=== PATIENT | male | born 1970 | race Hispanic/Latino ===

== ENCOUNTER 2020-11-17 12:59 | Emergency (ER) | payer BC ==
[~2020-11-17] VITALS: Ht 177.8 cm; Wt 95.3 kg
[2020-11-17 13:16] VITALS: BP 151/78
[2020-11-17 13:22] VITALS: BP 151/78
[2020-11-17 13:55] LABS: BILIRUBIN,URINE NEGATIVE (NEGATIVE); UA COLOR YELLOW; UROBILINOGEN,URINE 0.2 E.U./dL (0.2)
--- NOTE | 2020-11-17 13:55 | ER.PDOC ---
General Chief Complaint: Lower Back Pain or Injury Stated Complaint: HIP/BACK PAIN Time seen by MD: 13:52 Source: patient Exam Limitations: no limitations History of Present Illness Initial Comments Patient with initial back pain 3 weeks ago which improved spontaneously. Has returned 2 days ago, and getting worse. Severity/Quality: moderate, sharpness Radiation: other (No radiation) Method of Injury: unknown Modifying Factors: improves with movement, improves with rest Associated Symptoms: lower back pain Prior symptoms/Treatment: Similar symptoms previous (No prior diagnosis) Past Medical History Medical History: no pertinent history Surgical History: no surgical history Social History Alcohol Use: occassionally Drug Use: none Reviewed Nursing Reviewed: Vital Signs, Abn. Noted Review of Systems Constitutional: no symptoms reported EENTM: no symptoms reported Respiratory: no symptoms reported Cardiovascular: no symptoms reported Gastrointestinal: no symptoms reported Genitourinary: denies discharge, denies dysuria, denies frequency, denies hematuria, denies pain; other (hesitancy, and incomplete emptying.) Musculoskeletal: see HPI, back pain Skin: no symptoms reported Psychiatric/Neurological: no symptoms reported All Other Systems: Reviewed and Negative Physical Exam General Appearance: No Apparent Distress, WD/WN HEENT: PERRL/EOMI, Normal ENT Inspection, TMs Normal, Pharynx Normal Neck: Non-Tender, Normal Alignment Cardiovascular/Respiratory: Regular Rate, Rhythm, No M/R/G, Normal Peripheral Pulses, No JVD, Normal Breath Sounds, No Respiratory Distress Gastrointestinal: Normal Bowel Sounds, No Organomegaly, No Pulsatile Mass, Non Tender, Soft Back: Normal Inspection, No CVA Tenderness, No Vertebral Tenderness, Decreased Range Of Motion (Painful with going from Flexion to Extension. 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025 (1.005-1.030) Urine pH 6.0 (4.5-8.0) Urine Protein NEGATIVE (NEGATIVE) Urine Urobilinogen 0.2 E.U./dL (0.2) Urine Nitrate NEGATIVE (NEGATIVE) Urine Leukocyte Esterase NEGATIVE (NEGATIVE) Urine Glucose (Auto)(UA) NEGATIVE (NEGATIVE) Urine Blood NEGATIVE (NEGATIVE) ER DEPART Departure Time of Disposition: 14:17 Disposition: 01 HOME / SELF CARE / HOMELESS Impression: Primary Impression: Low back pain Additional Impressions: Spondylosis BPH associated with nocturia Condition: Stable Patient Instructions: Back Exercises, Back Pain in , Benign Prostatic Hypertrophy Referrals: PCP,UNKNOWN (PCP) PRIMARY CARE PROVIDER Additional Instructions: Follow up with PCP in 1 week. Duration or Time Spent with Pa: 30 Return to Work/School Can a patient return to work?: Yes Problem Qualifiers Primary Impression: Low back pain Chronicity: acute Back pain laterality: bilateral Sciatica presence: without sciatica Qualified Codes: M54.5 - Low back pain ALEX LAU DO Nov 17, 2020 13:55
--- NOTE | 2020-11-17 14:08 | DIREP ---
PROCEDURE:XRAY SPINE LUMBAR 2-3 VWS COMPARISON:None. INDICATIONS:Back Pain TECHNIQUE:AP, lateral, and coned down lateral views of the lumbar spine are provided. FINDINGS: ALIGNMENT:Normal. VERTEBRAE:Normal. DISK SPACES:Mild diffuse lumbar ventral spondylosis without significant disc space narrowing. SPONDYLOLISTHESIS:None. SACROILIAC JOINTS:Normal. OTHER:Normal. CONCLUSION:Mild lumbar spondylosis without significant disc space narrowing. Dictated by: Khadar Leonardo MD on 11/17/2020 at 02:06 PM
[2020-11-17] MEDS ORDERED: KENALOG-40 ONE (14:22)
[2020-11-17] MEDS ORDERED: TORADOL ONE (14:22)
[2020-11-17 14:30] VITALS: BP 145/79
[2020-11-17] MEDS: KENALOG-40 IM ONE (14:30)
[2020-11-17] MEDS: TORADOL IM ONE (14:31)
== END 2020-11-17 14:35 ==
LOC: ER 12:59
DX: M47.816 Spondylosis without myelopathy or radiculopathy, lumbar region (principal); R35.1 Nocturia
CPT/HCPCS: 72100; 81003; 96372; 99284; J1885; J3301